=== PATIENT | female | born 1985 | race Caucasian/White ===

== ENCOUNTER 2018-11-13 01:39 | Emergency (ER) | payer BC, OTHER ==
[~2018-11-13] VITALS: Ht 162.6 cm; Wt 64.0 kg
[2018-11-13] MEDS ORDERED: TETANUS, DIPHTHERIA, PERTUSSIS VAC/PF 0.5ML (>7YR OLD) IM ONE (02:15)
[2018-11-13] MEDS ORDERED: LIDOCAINE HCL/PF 1% 10 MG/ML 5ML VIAL IJ ONE (02:15)
[2018-11-13] MEDS ORDERED: KETOROLAC 30MG/ML VIAL IM ONE (03:00)
[2018-11-13 04:42] VITALS: BP 131/72
== END 2018-11-13 04:43 | disposition home or self-care (01) ==
LOC: ER 01:39
DX: S61.512A Laceration without foreign body of left wrist, initial encounter (principal); Z72.89 Other problems related to lifestyle; W26.0XXA Contact with knife, initial encounter; Y93.89 Activity, other specified; Y92.89 Other specified places as the place of occurrence of the external cause; Y99.8 Other external cause status
CPT/HCPCS: 12002; 90471; 90715; 96372; 99283; A4217; J1885; J3490; Z7610